=== PATIENT | female | born 1945 | race Caucasian/White ===

== ENCOUNTER 2018-06-21 08:52 | Emergency (ER) | payer MEDICARE, OTHER ==
[~2018-06-21] VITALS: Ht 162.6 cm; Wt 72.6 kg
[2018-06-21] MEDS ORDERED: AMLODIPINE BESYL5 MG PO (09:24)
[2018-06-21] MEDS ORDERED: CITALOPRAM HBR20 MG PO (09:24)
[2018-06-21] MEDS ORDERED: HYOSCYAMINE0.125 MG PO (09:24)
[2018-06-21] MEDS ORDERED: METOPROLOL SUCC50 MG PO (09:24)
[2018-06-21] MEDS ORDERED: ASPIR 8181 MG PO (09:25)
== END 2018-06-21 12:06 | disposition home or self-care (01) ==
LOC: ED 08:52
DX: R21 Rash and other nonspecific skin eruption (principal)
CPT/HCPCS: 80053; 85025; 85610; 85730; 99283

== ENCOUNTER 2022-08-09 17:47 | Emergency (ER) | payer MEDICARE, OTHER ==
[~2022-08-09 17:47] MED LIST: AMLODIPINE BESYL5 MG PO; ASPIR 8181 MG PO; CITALOPRAM HBR20 MG PO; HYOSCYAMINE0.125 MG PO; METOPROLOL SUCC50 MG PO
[2022-08-09] MEDS ORDERED: IBUPROFEN600 MG PO (18:04)
[2022-08-09] MEDS ORDERED: CARAFATE1 GM PO (20:25)
[2022-08-09] MEDS ORDERED: MACROBID 100 M100 MG PO (20:25)
--- NOTE | 2022-08-12 18:59 | EKG ---
[facility] [address] [facility] [address] [place] [address] Signed Sinus tachycardia Otherwise normal ECG No previous ECGs available Confirmed by Amanda Soriano MD () on 08/12/2022 6:59:01 PM Electronically Signed By: AMANDA SORIANO MD 08/12/22 1859 PATIENT NAME: VELMA ESTRELLA Electrocardiogram DATE OF : 45 PHYSICIAN: AMANDA SORIANO MD REPORT #: [id number] REPORT IS CONFIDENTIAL AND NOT TO BE RELEASED WITHOUT AUTHORIZATION
== END 2022-08-09 20:47 | disposition home or self-care (01) ==
LOC: ED 17:47
DX: K29.70 Gastritis, unspecified, without bleeding (principal); N39.0 Urinary tract infection, site not specified; I12.9 Hypertensive chronic kidney disease with stage 1 through stage 4 chronic kidney disease, or unspecified chronic kidney disease; N18.9 Chronic kidney disease, unspecified; Z79.899 Other long term (current) drug therapy
CPT/HCPCS: 36415; 80053; 81001; 83690; 83735; 85025; 96361; 96374; 99284-25; J2405; J7030; J7040

== ENCOUNTER 2024-06-29 15:08 | Emergency (ER) | payer MEDICARE, OTHER ==
[~2024-06-29] VITALS: Ht 162.6 cm; Wt 64.4 kg
[~2024-06-29 15:08] MED LIST changes: +CARAFATE1 GM PO; +CEFPODOXIME PR200 MG PO; +IBUPROFEN600 MG PO; +MACROBID 100 M100 MG PO
[2024-06-29] MEDS ORDERED: NITROFURANTOIN100 M1 PO (15:19)
[2024-06-29 15:41] LABS: BILIRUBIN, URINE NEGATIVE (negative); BLOOD/HGB, URINE NEGATIVE (Negative); KETONE, URINE NEGATIVE (Negative); LEUK ESTERASE, URINE SMALL (negative); NITRITE, URINE NEGATIVE (negative)
[2024-06-29 15:48] LABS: BACTERIA, URINE RARE /hpf (negative); CASTS, URINE NONE SEEN \\lpf; CRYSTALS, URINE NONE SEEN (0-1+); RED BLOOD CELLS, URINE 0-1 /hpf (0-5)
[2024-06-29 15:49] LABS: COLLECTION TYPE, URINE CLEAN CATCH; REFLEX CULTURE, URINE No (No)
[2024-06-29] MEDS ORDERED: CEPHALEXIN500 MG PO (17:27)
[2024-06-29] MEDS ORDERED: CEPHALEXIN MONOHYDRATE 500 MG CAP PO ONE (17:30)
[2024-06-29 17:40] VITALS: BP 139/81
== END 2024-06-29 17:41 | disposition home or self-care (01) ==
LOC: ED 15:08
PROVIDERS: Emergency Medicine
DX: N39.0 Urinary tract infection, site not specified (principal); I12.9 Hypertensive chronic kidney disease with stage 1 through stage 4 chronic kidney disease, or unspecified chronic kidney disease; N18.9 Chronic kidney disease, unspecified; Z88.2 Allergy status to sulfonamides; Z79.899 Other long term (current) drug therapy
CPT/HCPCS: 81001; 99284; A9270

== ENCOUNTER 2024-07-31 08:26 | Emergency (ER) | payer MEDICARE, OTHER ==
[~2024-07-31] VITALS: Ht 162.6 cm; Wt 60.6 kg
[~2024-07-31 08:26] MED LIST changes: +CEPHALEXIN500 MG PO; +NITROFURANTOIN100 M1 PO
[2024-07-31 11:06] LABS: BILIRUBIN, URINE NEGATIVE (negative); BLOOD/HGB, URINE NEGATIVE (Negative); KETONE, URINE NEGATIVE (Negative); LEUK ESTERASE, URINE SMALL (negative); NITRITE, URINE POSITIVE (negative)
[2024-07-31 11:13] LABS: EPITHELIAL CELLS, URINE SQUAMOUS 1+ /lpf (0-1+)
[2024-07-31 11:14] LABS: BACTERIA, URINE 1+ /hpf (negative); CASTS, URINE NONE SEEN \\lpf; COLLECTION TYPE, URINE CLEAN CATCH; CRYSTALS, URINE NONE SEEN (0-1+); RED BLOOD CELLS, URINE 0-1 /hpf (0-5); REFLEX CULTURE, URINE Yes (No); WHITE BLOOD CELLS, URINE 21-40 /HPF (0-5)
[2024-07-31] MEDS ORDERED: CEPHALEXIN MONOHYDRATE 500 MG CAP PO ONE (11:30)
[2024-07-31] MEDS ORDERED: CEPHALEXIN500 MG PO (11:44)
[2024-07-31] MEDS ORDERED: ACIDOPHILUS1 EACH PO (11:44)
[2024-07-31 11:45] VITALS: BP 145/80
== END 2024-07-31 11:45 | disposition home or self-care (01) ==
LOC: ED 08:26
PROVIDERS: Emergency Medicine
DX: N39.0 Urinary tract infection, site not specified (principal); I12.9 Hypertensive chronic kidney disease with stage 1 through stage 4 chronic kidney disease, or unspecified chronic kidney disease; N18.9 Chronic kidney disease, unspecified; Z79.899 Other long term (current) drug therapy; Z88.2 Allergy status to sulfonamides
CPT/HCPCS: 51701; 51798; 81001; 87077; 87088; 87186; 99284-25; A9270